=== PATIENT | male | born 1990 | race Caucasian/White ===

== ENCOUNTER → 2024-04-18 | Outpatient (CLI) | payer OTHER | LOC: M OUTALCOH 09:07 | PROVIDERS: ATTEND Psychiatry & Neurology Psychiatry | DX: F14.20 Cocaine dependence, uncomplicated (principal); Z72.0 Tobacco use ==

== ENCOUNTER 2024-04-25 18:27 | Inpatient (IN) | payer MEDICAID, OTHER ==
[~2024-04-25] VITALS: Ht 175.3 cm; Wt 84.1 kg
[2024-04-25 19:43] LABS: HEMATOCRIT 39.4 % (42.0-52.0); HEMOGLOBIN 12.8 g/dl (13.5-17.5); MEAN CORPUSCULAR HEMOGLOBIN 31.1 pg (27.0-33.0); MEAN CORPUSCULAR HGB CONC 32.5 g/dl (32.0-36.5); MEAN CORPUSCULAR VOLUME 95.9 fl (80.0-96.0); PLATELET COUNT, AUTOMATED 187 10^3/uL (150-450); RED BLOOD COUNT 4.11 10^6/uL (4.30-6.10); WHITE BLOOD COUNT 8.9 10^3/uL (4.0-10.0)
[2024-04-25 20:14] LABS: ETHYL ALCOHOL (ETHANOL) < 0.003 % (0.000-0.010)
[2024-04-25 20:15] LABS: SALICYLATE LEVEL < 3.0 MG/DL (<30)
[2024-04-25 20:16] LABS: ALBUMIN 3.9 G/DL (3.2-5.2); ALKALINE PHOSPHATASE 63 U/L (46-116); ALT/SGPT 18 U/L (7.0-40); AST/SGOT 11 U/L (<34); BILIRUBIN,DIRECT < 0.1 MG/DL (<0.4); BILIRUBIN,TOTAL 0.2 MG/DL (0.3-1.2); BLOOD UREA NITROGEN 18 MG/DL (9-23); CALCIUM LEVEL 9.9 MG/DL (8.5-10.1); CARBON DIOXIDE LEVEL 28 MMOL/L (20-31); CHLORIDE LEVEL 108 MMOL/L (98-107); CREATININE FOR GFR 1.11 MG/DL (0.70-1.30); GLOMERULAR FILTRATION RATE > 60.0 (>60); GLUCOSE, FASTING 116 MG/DL (60-100); POTASSIUM SERUM 4.3 MMOL/L (3.5-5.1); SODIUM LEVEL 142 MMOL/L (136-145); TOTAL PROTEIN 6.9 G/DL (5.7-8.2)
[2024-04-25 20:18] LABS: THYROID STIMULATING HORMONE 0.606 uIU/ML (0.55-4.78)
[2024-04-25 21:46] LABS: AMPHETAMINES LEVEL URINE NEGATIVE (NEGATIVE); BARBITURATES URINE NEGATIVE (NEGATIVE); BENZODIAZEPINES URINE NEGATIVE (NEGATIVE); COCAINE METABOLITE URINE NEGATIVE (NEGATIVE); METHADONE URINE NEGATIVE (NEGATIVE); OPIATES URINE NEGATIVE (NEGATIVE); PHENCYCLIDINE URINE NEGATIVE (NEGATIVE)
[2024-04-25 21:51] LABS: CANNABINOIDS URINE POSITIVE (NEGATIVE)
[2024-04-25] MEDS ORDERED: OLANZapine ORAL DISINTEGRATING TAB 5MG PO PRN (22:30)
[2024-04-25] MEDS ORDERED: MAALOX 30 ML SUSP *UDC PO PRN (22:30)
[2024-04-25] MEDS ORDERED: LORazepam 2 MG TAB PO PRN (22:30)
[2024-04-25] MEDS ORDERED: MOM 30ML SUSPENSION UDC PO PRN (22:30)
[2024-04-25] MEDS ORDERED: IBUPROFEN 400MG TAB PO PRN (22:30)
[2024-04-25] MEDS ORDERED: ACETAMINOPHEN TAB 650MG DOSE (2X325MG) PO PRN (22:30)
[2024-04-25] MEDS ORDERED: diphenhydrAMINE 25MG CAP PO PRN (22:30)
[2024-04-25 23:15] VITALS: BP 118/65; TEMP 97.1; O2SAT 100
[2024-04-26] VITALS: BP_SYST 118; BP_SYST 122; BP_DIAS 60; BP_DIAS 65
[2024-04-26 06:37] VITALS: BP 106/53; TEMP 97.1; O2SAT 100
[2024-04-26] MEDS: MULTIVITAMINS/MINERALS THERAP 1 TAB PO SCH (08:55)
[2024-04-26] MEDS: THIAMINE 100 MG TAB PO SCH (08:55)
[2024-04-26] MEDS: FOLIC ACID 1MG TAB PO SCH (08:55)
[2024-04-26] MEDS: ARIPiprazole 10 MG TAB PO SCH (09:00)
[2024-04-26 10:00] VITALS: BP 128/69
[2024-04-26] MEDS ORDERED: CLON2TAB7 PO (11:40)
[2024-04-26] MEDS ORDERED: HOME MED LIST COMPLETE! XX SCH (11:45)
[2024-04-26] MEDS: buPROPion **XL** TABLET 150MG (WELLBUTRIN XL) PO SCH (12:43)
[2024-04-26] MEDS: NICOTINE 21MG/24HR 1 EA TRANSDERMAL TD SCH (12:43)
[2024-04-26 14:42] VITALS: BP 137/72; TEMP 97.6; O2SAT 95
[2024-04-26] MEDS: clonazePAM 1 MG TAB PO SCH (15:01)
[2024-04-26 18:00] VITALS: BP 137/72
[2024-04-26] MEDS: traZODone 50 MG TAB PO PRN (20:05)
[2024-04-26 22:30] VITALS: BP 132/80
[2024-04-27 06:43] VITALS: BP 116/73; TEMP 97.8; O2SAT 98
[2024-04-27] MEDS ORDERED: buPROPion **XL** TABLET 150MG (WELLBUTRIN XL) PO SCH (09:00)
[2024-04-27] MEDS ORDERED: ARIPiprazole 10 MG TAB PO SCH (09:00)
[2024-04-27] MEDS: clonazePAM 0.5 MG TAB PO SCH (09:33)
[2025-04-26] MEDS ORDERED: buPROPion **XL** TABLET 150MG (WELLBUTRIN XL) PO SCH (09:00)
== END 2024-04-27 15:50 | disposition home or self-care (01) | DRG 754 ==
LOC: M ED 18:27 → M ED INP 22:28 → M PSY 23:11
PROVIDERS: ADMIT Psychiatry & Neurology Psychiatry; ATTEND Psychiatry & Neurology Psychiatry
DX: F32.A Depression, unspecified (principal); R45.851 Suicidal ideations; Z79.899 Other long term (current) drug therapy

== ENCOUNTER 2025-01-26 21:28 | Inpatient (IN) | payer MEDICAID, OTHER ==
[~2025-01-26] VITALS: Ht 177.8 cm; Wt 88.6 kg
[~2025-01-26 21:28] MED LIST: CLON2TAB7 PO
[2025-01-26 22:08] LABS: BASO # 0.0 10^3/uL (0.0-0.2); BASO % 0.4 % (0.0-1.0); EOS # 0.2 10^3/uL (0.0-0.5); EOS % 1.6 % (0.0-3.0); LYMPH # 2.6 10^3/uL (1.5-5.0); LYMPH % 22.9 % (24.0-44.0); MONO # 0.9 10^3/uL (0.0-0.8); MONO % 7.6 % (2.0-8.0); NEUTROPHILS # 7.6 10^3/uL (1.5-8.5); NEUTROPHILS % 67.3 % (36.0-66.0); PLATELET COUNT, AUTOMATED 217 10^3/uL (150-450)
[2025-01-26 22:21] LABS: ALT/SGPT 29 U/L (7.0-40); AST/SGOT 28 U/L (<34); CALCIUM LEVEL 9.0 MG/DL (8.5-10.1); CARBON DIOXIDE LEVEL 25 MMOL/L (20-31); CHLORIDE LEVEL 108 MMOL/L (98-107); CREATININE FOR GFR 1.53 MG/DL (0.70-1.30); GLOMERULAR FILTRATION RATE 60.4 (>60); POTASSIUM SERUM 4.0 MMOL/L (3.5-5.1); SODIUM LEVEL 145 MMOL/L (136-145)
[2025-01-26] MEDS: NS (Normal Saline) 0.9% 1,000 ML IV ONE (22:49)
[2025-01-26 23:03] LABS: ETHYL ALCOHOL (ETHANOL) < 0.003 % (0.000-0.010)
[2025-01-26 23:05] LABS: SALICYLATE LEVEL < 3.0 MG/DL (<30)
[2025-01-26 23:09] LABS: CPK CREATINE PHOSPHOKINASE 331 U/L (46-171)
[2025-01-27 01:12] LABS: BARBITURATES URINE NEGATIVE (NEGATIVE); BENZODIAZEPINES URINE NEGATIVE (NEGATIVE); COCAINE METABOLITE URINE NEGATIVE (NEGATIVE); METHADONE URINE NEGATIVE (NEGATIVE); OPIATES URINE NEGATIVE (NEGATIVE)
[2025-01-27 01:13] LABS: PHENCYCLIDINE URINE NEGATIVE (NEGATIVE)
[2025-01-27 01:20] LABS: AMPHETAMINES LEVEL URINE POSITIVE (NEGATIVE); CANNABINOIDS URINE POSITIVE (NEGATIVE)
[2025-01-27] MEDS ORDERED: HOME MED LIST COMPLETE! XX SCH (08:15)
[2025-01-27] MEDS: NICOTINE POLACRILEX 2 MG GUM PO SCH (10:28)
[2025-01-27] MEDS: clonazePAM 1 MG TAB PO ONE (20:06)
[2025-01-28] MEDS ORDERED: ABIL20TA5 PO (10:57)
[2025-01-28] MEDS ORDERED: ADDE30CA3 PO (10:57)
[2025-01-28] MEDS ORDERED: WELLTAB40 PO (10:57)
[2025-01-28] MEDS ORDERED: CLON2TAB14 PO (10:57)
[2025-01-28] MEDS ORDERED: clonazePAM 1 MG TAB PO SCH (12:00)
[2025-01-28] MEDS ORDERED: ADDE30TA PO (12:41)
[2025-01-28] MEDS: buPROPion **XL** 150 MG TABLET PO SCH (13:43)
[2025-01-28] MEDS: clonazePAM 1 MG TAB PO PRN ×2 (13:44→20:55)
[2025-01-28] MEDS ORDERED: MOM 30 ML SUSPENSION UDC PO PRN (16:05)
[2025-01-28] MEDS ORDERED: IBUPROFEN 400 MG TAB PO PRN (16:05)
[2025-01-28] MEDS ORDERED: MAALOX 30 ML SUSP *UDC PO PRN (16:05)
[2025-01-28] MEDS ORDERED: ACETAMINOPHEN 325 MG TAB PO PRN (16:05)
[2025-01-28 18:00] VITALS: BP 116/69; TEMP 96.9; O2SAT 98
[2025-01-28] MEDS: traZODone 50 MG TAB PO PRN (20:28)
[2025-01-28] MEDS: NICOTINE 14 MG/24 HR TRANSDERMAL TD SCH (22:05)
[2025-01-29 06:27] VITALS: BP 110/56; TEMP 97.5; O2SAT 100
[2025-01-29] MEDS: buPROPion **XL** 150 MG TABLET PO SCH (08:02)
[2025-01-29 15:21] VITALS: BP 114/75; TEMP 97.2; O2SAT 100
[2025-01-30 06:26] VITALS: BP 115/60; TEMP 97; O2SAT 97
[2025-01-30] MEDS: NICOTINE 21 MG/24 HR 1 EA TRANSDERMAL TD SCH (08:07)
[2025-01-30 18:34] VITALS: BP 129/77; TEMP 97.8; O2SAT 97
[2025-01-31 06:08] VITALS: BP 105/57; TEMP 97.8; O2SAT 100
[2025-01-31] MEDS ORDERED: ADDE30TA PO (08:50)
[2025-01-31] MEDS ORDERED: CLON2TAB7 PO (08:50)
[2025-01-31] MEDS ORDERED: ABIL20TA5 PO (08:50)
[2025-01-31] MEDS ORDERED: WELLTAB40 PO (08:50)
== END 2025-01-31 10:29 | disposition home or self-care (01) | DRG 753 ==
LOC: M ED 21:28 → M ED INP 01-28 16:02 → M PSY 01-28 16:34
PROVIDERS: ADMIT Psychiatry & Neurology Neurology; ATTEND Psychiatry & Neurology Neurology
DX: F39 Unspecified mood [affective] disorder (principal); G40.909 Epilepsy, unspecified, not intractable, without status epilepticus; R45.851 Suicidal ideations; F90.9 Attention-deficit hyperactivity disorder, unspecified type; F15.90 Other stimulant use, unspecified, uncomplicated; F17.210 Nicotine dependence, cigarettes, uncomplicated; F41.9 Anxiety disorder, unspecified; Z59.02 Unsheltered homelessness; Z79.899 Other long term (current) drug therapy

== ENCOUNTER 2025-05-02 09:17 | Emergency (ER) | payer MEDICAID, OTHER ==
[~2025-05-02] VITALS: Ht 177.8 cm; Wt 88.0 kg
[~2025-05-02 09:17] MED LIST changes: +ABIL20TA5 PO; +ADDE30CA3 PO; +ADDE30TA PO; +CLON2TAB14 PO; +WELLTAB40 PO
[2025-05-02 09:25] VITALS: TEMP 97.2
[2025-05-02 09:54] LABS: BASO # 0.0 10^3/uL (0.0-0.2); BASO % 0.3 % (0.0-1.0); EOS # 0.1 10^3/uL (0.0-0.5); EOS % 0.6 % (0.0-3.0); LYMPH # 1.7 10^3/uL (1.5-5.0); LYMPH % 14.9 % (24.0-44.0); MONO # 0.8 10^3/uL (0.0-0.8); MONO % 7.3 % (2.0-8.0); NEUTROPHILS # 8.7 10^3/uL (1.5-8.5); NEUTROPHILS % 75.9 % (36.0-66.0); PLATELET COUNT, AUTOMATED 285 10^3/uL (150-450)
[2025-05-02] MEDS: OLANZapine ORAL DISINTEGRATING TAB 5MG PO ONE (09:58)
[2025-05-02 10:21] LABS: ETHYL ALCOHOL (ETHANOL) < 0.003 % (0.000-0.010)
[2025-05-02 10:32] LABS: BARBITURATES URINE NEGATIVE (NEGATIVE); BENZODIAZEPINES URINE NEGATIVE (NEGATIVE); COCAINE METABOLITE URINE NEGATIVE (NEGATIVE); METHADONE URINE NEGATIVE (NEGATIVE); OPIATES URINE NEGATIVE (NEGATIVE); PHENCYCLIDINE URINE NEGATIVE (NEGATIVE)
[2025-05-02 10:33] LABS: AMPHETAMINES LEVEL URINE POSITIVE (NEGATIVE); CALCIUM LEVEL 10.1 MG/DL (8.5-10.1); CANNABINOIDS URINE POSITIVE (NEGATIVE); CARBON DIOXIDE LEVEL 15 MMOL/L (20-31); CHLORIDE LEVEL 100 MMOL/L (98-107); CREATININE FOR GFR 1.61 MG/DL (0.70-1.30); GLOMERULAR FILTRATION RATE 56.8 (>60); MAGNESIUM LEVEL 2.8 MG/DL (1.8-2.4); POTASSIUM SERUM 5.0 MMOL/L (3.5-5.1); SODIUM LEVEL 139 MMOL/L (136-145)
[2025-05-02] MEDS ORDERED: CLON2TAB7 (10:48)
[2025-05-02] MEDS ORDERED: ADDE30TA (10:48)
[2025-05-02] MEDS: SODIUM CHLORIDE 0.9% 1000 ML IV STA (11:15)
[2025-05-02 14:45] VITALS: BP 144/96
[2025-05-02 15:00] VITALS: O2SAT 98
== END 2025-05-02 16:35 | disposition home or self-care (01) ==
LOC: EDBD 09:17 → M ED 09:17
DX: S09.90XA Unspecified injury of head, initial encounter (principal); X58.XXXA Exposure to other specified factors, initial encounter; R00.0 Tachycardia, unspecified; F41.9 Anxiety disorder, unspecified; F90.9 Attention-deficit hyperactivity disorder, unspecified type; F31.9 Bipolar disorder, unspecified; F19.10 Other psychoactive substance abuse, uncomplicated; Z79.899 Other long term (current) drug therapy; Y92.89 Other specified places as the place of occurrence of the external cause; Y93.89 Activity, other specified; Y99.9 Unspecified external cause status